=== PATIENT | male | born 1970 | race Two or more races ===

== ENCOUNTER 2019-08-03 15:01 | Emergency (ER) | payer BC ==
[2019-08-03] MEDS ORDERED: ACETAMINOPHEN 325 MG TABLET PO ONE (15:14)
[2019-08-03] MEDS ORDERED: NORMAL SALINE 1000 ML 1,000 ML IV ONE (15:14)
[2019-08-03] MEDS ORDERED: ONDANSETRON HCL INJ/PF 4 MG/2 ML SDV IV ONE (15:15)
--- NOTE | 2019-08-03 15:17 | ER Document Report ---
ED Medical Screen (RME) - General Stated Complaint: BLOOD SUGAR ISSUES Time Seen by Provider: 08/03/19 15:02 Primary Care Provider: JACQUELINE FINN NP [Primary Care Provider] - Follow up as needed Information source: Patient Notes: Patient presents complaining of nausea vomiting diarrhea that started today. Patient states that he has had fever of 101 at his doctor's office prior to arrival here. Patient complains of headache pain and generalized body aches. Denies any abdominal pain. She reports vomiting once and having diarrhea x3 episodes today. Patient does have a history of hypertension dyslipidemia and diabetes. I have greeted and performed a rapid initial assessment of this patient. A comprehensive ED assessment and evaluation of the patient, analysis of test results and completion of the medical decision making process will be conducted by additional ED providers. - Related Data Allergies/Adverse Reactions: Sulfa (Sulfonamide Antibiotics) Allergy (Verified 08/03/19 15:07) Physical Exam - Vital signs Vitals: Temp Pulse Resp BP Pulse Ox 98.8 F 131 H 18 148/86 H 98 08/03/19 15:05 08/03/19 15:05 08/03/19 15:05 08/03/19 15:05 08/03/19 15:05 - General General appearance: Appears well, Alert - Cardiovascular Rhythm: Tachycardia Heart sounds: S1 appreciated, S2 appreciated Course - Vital Signs Vital signs: Temp Pulse Resp BP Pulse Ox 98.8 F 131 H 18 148/86 H 98 08/03/19 15:05 08/03/19 15:05 08/03/19 15:05 08/03/19 15:05 08/03/19 15:05 Doctor's Discharge - Discharge Referrals: JACQUELINE FINN NP [Primary Care Provider] - Follow up as needed
--- NOTE | 2019-08-03 15:47 | ER Document Report ---
ED General - General Chief Complaint: Nausea/Vomiting/Diarrhea Stated Complaint: BLOOD SUGAR ISSUES Time Seen by Provider: 08/03/19 15:02 Primary Care Provider: JACQUELINE FINN NP [Primary Care Provider] - Follow up as needed Mode of Arrival: Ambulatory Information source: Patient Notes: triage note Pt sent here from pcp's office for fever, n/v/d, body aches and headache that started today. Pt has hx of diabetes. Pt denies any cough or recent travel. Pt has face mask on. Pt is alert and oriented, respirations even and unlabored, skin warm, dry and pink, NAD observed. 49-year-old [place] male arrives from work from [place] complaining of diffuse frontal headache fever chills and loose stools and nausea vomiting x1 ; patient ate a gas station steak biscuit prior to vomiting symptoms began around 9 AM today. He did see his PCP Dr. Corona. Patient also reports he is a non-insulin dependent diabetic on oral medication. TRAVEL OUTSIDE OF THE [place] IN LAST 30 DAYS: No - HPI Onset: This morning Onset/Duration: Sudden Quality of pain: No pain Associated symptoms: None Exacerbated by: Denies Relieved by: Denies Similar symptoms previously: Yes Recently seen / treated by doctor: Yes - Related Data Allergies/Adverse Reactions: Sulfa (Sulfonamide Antibiotics) Allergy (Verified 08/03/19 15:07) Past Medical History - General Information source: Patient - Social History Smoking Status: Never Smoker Cigarette use (# per day): No Chew tobacco use (# tins/day): No Smoking Education Provided: No Frequency of alcohol use: None Drug Abuse: None Lives with: Family Family History: Reviewed & Not Pertinent Patient has suicidal ideation: No Patient has homicidal ideation: No Review of Systems - Review of Systems Constitutional: See HPI, Chills, Fever, Malaise, Weakness EENT: See HPI, Nose congestion Cardiovascular: No symptoms reported Respiratory: No symptoms reported Gastrointestinal: No symptoms reported Genitourinary: No symptoms reported Male Genitourinary: No symptoms reported Musculoskeletal: No symptoms reported Skin: No symptoms reported Hematologic/Lymphatic: No symptoms reported Neurological/Psychological: No symptoms reported Physical Exam - Vital signs Vitals: Temp Pulse Resp BP Pulse Ox 98.8 F 131 H 18 148/86 H 98 08/03/19 15:05 08/03/19 15:05 08/03/19 15:05 08/03/19 15:05 08/03/19 15:05 Interpretation: Tachycardic - General General appearance: Appears well - HEENT Head: Normocephalic Eyes: Normal Conjunctiva: Normal Cornea: Normal Extraocular movements intact: Yes Eyelashes: Normal Pupils: PERRL - Respiratory Respiratory status: No respiratory distress Chest status: Nontender Breath sounds: Normal Chest palpation: Normal - Cardiovascular Rhythm: Regular Heart sounds: Normal auscultation Murmur: No Friction rub: No José Miguel's crunch: No - Abdominal Inspection: Normal Distension: No distension Bowel sounds: Normal Tenderness: Nontender Organomegaly: No organomegaly - Back Back: Normal - Extremities General upper extremity: Normal inspection General lower extremity: Normal inspection - Neurological Neuro grossly intact: Yes Cognition: Normal Orientation: AAOx4 [place] Coma Scale Eye Opening: Spontaneous [place] Coma Scale Verbal: Oriented [place] Coma Scale Motor: Obeys Commands [place] Coma Scale Total: 15 Speech: Normal Cranial nerves: Normal Cerebellar coordination: Normal Motor strength normal: LUE, RUE, LLE, RLE - Psychological Associated symptoms: Normal affect - Skin Skin Temperature: Warm Skin Moisture: Dry Course - Vital Signs Vital signs: Temp Pulse Resp BP Pulse Ox 99.9 F 131 H 32 H 124/69 95 08/03/19 17:38 08/03/19 15:05 08/03/19 17:01 08/03/19 17:01 08/03/19 17:01 - Laboratory Result Diagrams: 08/03/19 16:40 08/03/19 16:40 Laboratory results interpreted by me: 08/03/19 08/03/19 08/03/19 15:14 15:25 16:40 WBC 12.3 H Lymph % (Auto) 8.4 L Absolute Neuts (auto) 10.5 H Seg Neutrophils % 85.4 H Sodium Glucose POC Glucose 138 H Urine Glucose (UA) >=500 H Urine Ketones TRACE H Urine Blood SMALL H 08/03/19 16:40 WBC Lymph % (Auto) Absolute Neuts (auto) Seg Neutrophils % Sodium 134.3 L Glucose 129 H POC Glucose Urine Glucose (UA) Urine Ketones Urine Blood - Diagnostic Test Radiology reviewed: Reports reviewed Critical Care Note - Critical Care Note Total time excluding time spent on procedures (mins): 90 Discharge - Discharge Clinical Impression: Gastroenteritis due to norovirus Condition: Good Disposition: HOME, SELF-CARE Additional Instructions: Follow-up with personal doctor return to ER as needed take medicines as directed encourage fluids Prescriptions: Ondansetron [Zofran Odt 4 mg Tablet] 1 - 2 tab PO Q4H PRN #15 tab.rapdis PRN Reason: For Nausea/Vomiting Forms: Return to Work Referrals: JACQUELINE FINN [employer] SW[employer]PERATOR [Primary Care Provider] - Follow up as needed
[2019-08-03 15:57] LABS: APPEARANCE,URINE CLEAR; BILIRUBIN,URINE NEGATIVE (NEGATIVE); COLOR,URINE YELLOW; GLUCOSE, URINE >=500 mg/dL (NEGATIVE); KETONES,URINE TRACE mg/dL (NEGATIVE); PROTEIN,URINE NEGATIVE (NEGATIVE); URINE SPECIFIC GRAVITY 1.039; UROBILINOGEN,URINE NEGATIVE mg/dL (<2.0)
--- NOTE | 2019-08-03 16:02 | RADIOLOGY REPORT (SQ) ---
EXAM DESCRIPTION: CHEST SINGLE VIEW COMPLETED DATE/TIME: 08/03/2019 3:48 pm REASON FOR STUDY: fever COMPARISON: None. EXAM PARAMETERS: NUMBER OF VIEWS: One view. TECHNIQUE: Single frontal radiographic view of the chest acquired. RADIATION DOSE: NA LIMITATIONS: None. FINDINGS: LUNGS AND PLEURA: No opacities, masses or pneumothorax. No pleural effusion. MEDIASTINUM AND HILAR STRUCTURES: No masses. Contour normal. HEART AND VASCULAR STRUCTURES: The heart size is borderline. There is no pulmonary edema. BONES: No acute findings. HARDWARE: None in the chest. OTHER: No other significant finding. IMPRESSION: Borderline heart size without pulmonary edema. No acute pulmonary findings. TECHNICAL DOCUMENTATION: JOB ID: [id number] 2010 [employer]- All Rights Reserved Reading location - IP/workstation name: [email or web address]
[2019-08-03 16:04] LABS: A TYPE INFLUENZA AG NEGATIVE (NEGATIVE); B INFLUENZA AG NEGATIVE (NEGATIVE)
[2019-08-03 17:12] LABS: ABSOLUTE MONOCYTES (AUTO) 0.7 10^3/uL (0.1-1.4); ABSOLUTE NEUT (AUTO) 10.5 10^3/uL (1.7-8.2); BASOPHILS % (AUTO) 0.3 % (0-2); HEMATOCRIT 42.9 % (37.9-51.0); HEMOGLOBIN 14.8 g/dL (13.5-17.0); LYMPHOCYTES % (AUTO) 8.4 % (13-45); MEAN CORPUSCULAR HEMOGLOBIN 30.1 pg (27.0-33.4); MEAN CORPUSCULAR HGB CONC 34.6 g/dL (32.0-36.0); MEAN CORPUSCULAR VOLUME 87 fl (80-97); MONOCYTES % (AUTO) 5.9 % (3-13); PLATELET COUNT 203 10^3/uL (150-450); RED BLOOD COUNT 4.91 10^6/uL (4.35-5.55); RED CELL DISTRIBUTION WIDTH 13.2 % (11.5-14.0); SEGMENTED NEUTROPHILS % (AUTO) 85.4 % (42-78); TOTAL CELLS COUNTED % (AUTO) 100 %; VENOUS BLOOD PCO2 35.6 mmHg (35-63); VENOUS BLOOD PH 7.41 (7.30-7.42); WHITE BLOOD COUNT 12.3 10^3/uL (4.0-10.5)
[2019-08-03 17:26] LABS: INTERNATIONAL RATION (INR) 1.04; PROTHROMBIN TIME 13.6 SEC (11.4-15.4)
[2019-08-03 17:28] LABS: ALBUMIN 4.1 g/dL (3.5-5.0); ALKALINE PHOSPHATASE 112 U/L (38-126); ANION GAP 10 (5-19); ASPARTATE AMINO TRANSFERASE 25 U/L (17-59); BILIRUBIN,TOTAL 0.8 mg/dL (0.2-1.3); BLOOD UREA NITROGEN 10 mg/dL (7-20); CALCIUM 8.9 mg/dL (8.4-10.2); CARBON DIOXIDE 23 mmol/L (22-30); CHLORIDE 101 mmol/L (98-107); GLUCOSE 129 mg/dL (75-110); POTASSIUM 3.6 mmol/L (3.6-5.0); TOTAL PROTEIN 6.8 g/dL (6.3-8.2)
--- NOTE | 2019-08-03 18:54 | EKG REPORT ---
SEVERITY:- BORDERLINE ECG - SINUS TACHYCARDIA BORDERLINE T ABNORMALITIES, INFERIOR LEADS : Confirmed by: Héctor Oconnor MD 03-Aug-2019 18:53:40
[2019-08-03 19:05] VITALS: BP 123/79
== END 2019-08-03 19:06 | disposition home or self-care (01) ==
LOC: ER 15:01
DX: A08.39 Other viral enteritis (principal); R11.2 Nausea with vomiting, unspecified; R19.7 Diarrhea, unspecified; R50.9 Fever, unspecified; M79.10 Myalgia, unspecified site; R51 Headache; R53.81 Other malaise; R53.1 Weakness; R09.81 Nasal congestion; E11.65 Type 2 diabetes mellitus with hyperglycemia; Z79.84 Long term (current) use of oral hypoglycemic drugs; Z88.2 Allergy status to sulfonamides
CPT/HCPCS: 93005; 99285; 96361; 96374; 36415; 87040; 87070; 87880; 82962; 83605; 85025; 85610; 80053; 81001; 82803; 87804; 71045; 93010; J2405; J7030